=== PATIENT | female | born 1955 | race Caucasian/White ===

== ENCOUNTER 2017-07-15 00:16 | Emergency (ER) | payer BC ==
[~2017-07-15] VITALS: Ht 165.1 cm; Wt 64.0 kg
[~2017-07-15 00:16] MED LIST: AMLODIPINE10 MG PO; ASPIRIN 8181 MG PO; ASPIRIN325 MG PO; ATORVASTATIN CA20 MG PO; CIPROFLOXACN500 MG PO; COMBIVENT IN; COZAAR100 MG PO; COZAAR50 MG PO; DIAZEPAM10 MG PO; DURAGESIC25 MCG/PAT TD; EC ASPIRIN325 MG PO; EPIPEN0.3 MG IJ; FERR SULFATE325 MG PO; FLONASE NASAL50 MCG; FOLIC ACID1 MG PO; FUROSEMIDE40 MG PO; FUROSEMIDE80 MG PO; HUMALOG100 MG/ML; HUMIR1 SC; HYDRALAZINE10 MG PO; HYDRALAZINE25 MG PO; HYDROCODONE/ACE1 TAB PO; HYDROXYCHLOR200 MG PO; IPRATROPIU0.5 MG/3 M NEB; K-DUR/KLOR-CON20 MEQ PO; K-TAB20 MEQ PO; KLONOPIN1 MG PO; LABETALOL200 MG PO; LANTUS SOLOSTAR SC; LANTUS100 MG/ML SC; LASIX 20 MG20 MG/TAB PO; LEVAQUIN750 MG PO; Levaquin PO; METOPROL TAR25 M1 PO; METOPROL TAR25 MG PO; METOPROLOL TART50 MG PO; NEXIUM20 MG PO; NEXIUM40 M1 PO; NICOTINE T21 MG/PATC TD; NITRO-BID2.5 M1 PO; NITRO-TIME2.5 MG SL; NITROGLYCER0.4 MG SL; NORCO1 TAB PO; NOVOLOG FLEXPEN SC; NOVOLOG100 IU/1 M SC; PAROXETINE20 MG PO; POT CL MICRO20 MEQ PO; PREDNISONE10 MG PO; PRILOSEC40 MG PO; PROCHLORPERAZIN10 MG PO; QUESTRAN4 G1 PO; SIMVASTATIN40 MG PO; SYMBICORT 80-4.5MCG; SYMBICORT1 AE1; TEMAZEPAM15 MG PO; VALIUM5 MG PO; VERAPAMIL180 M2 PO; VERAPAMIL180 M3 PO; VITA D-1000 PO; VIVELLE-DOT0.05 MG TD; XANAX0.25 MG PO; ZEGERID1 CAP PO
[2017-07-15 01:11] LABS: HEMATOCRIT 27.4 % (37.0-47.0); HEMOGLOBIN 9.3 g/dl (12.0-16.0); IMMATURE GRANULOCYTES 0.4 % (0.0-1.0); MEAN CELL VOLUME 96.1 fL CALC (80.0-100.0); MEAN CORPUSCULAR HGB 32.6 pG CALC (26.0-32.0); MEAN CORPUSCULAR HGB CONC 33.9 g/L CALC (32.0-36.0); PLATELET COUNT 178 thou/uL (130-400); RED BLOOD COUNT 2.85 mill/uL (4.20-5.60)
[2017-07-15 01:23] LABS: BILIRUBIN, TOTAL 0.4 mg/dL (0.0-1.4); CALCIUM 8.4 mg/dL (8.4-10.2); POTASSIUM 4.6 mmol/l (3.5-5.1); TOTAL PROTEIN 5.6 g/dL (6.3-8.2)
[2017-07-15 01:26] LABS: ACT PARTIAL THROMBO TIME 32.2 SECONDS (20.0-32.5); INTERNATIONAL NORMALIZED RATIO 0.9 RATIO (0.7-1.3); PROTHROMBIN TIME 10.4 SECONDS (9.0-12.5)
[2017-07-15 01:59] LABS: CREATININE 8.4 mg/dL (0.5-1.0)
[2017-07-15 02:05] LABS: BAND 13 % (0-8); MANUAL DIFFERENTIAL YES; PLATELET ESTIMATE NORMAL
[2017-07-15 02:08] LABS: INFLUENZA A POSITIVE (NONE DETECT)
[2017-07-15 02:09] LABS: INFLUENZA B NONE DETECTED (NONE DETECT)
[2017-07-15 03:07] LABS: URINE BILIRUBIN - DIPSTICK NEGATIVE (NEGATIVE); URINE BLOOD DIPSTICK MODERATE (NEGATIVE); URINE COLOR YELLOW; URINE GLUCOSE - DIPSTICK NEGATIVE (NEGATIVE); URINE KETONE TRACE mg/dL (NEGATIVE); URINE NITRITE - DIPSTICK NEGATIVE (Negative); URINE PH 5.5 (4.5-8.0); URINE PROTEIN - DIPSTICK >=300 mg/dL (NEG-TRACE); URINE SPECIFIC GRAVITY 1.025; URINE UROBILINOGEN - DIPSTICK 0.2 E.U./dL (0.2)
[2017-07-15 03:08] LABS: URINE CLARITY CLOUDY; URINE LEUK ESTERASE MODERATE (NEGATIVE)
[2017-07-15 03:33] LABS: BARBITURATES NEGATIVE (NEGATIVE); COCAINE NEGATIVE (NEGATIVE); METHADONE NEGATIVE (NEGATIVE); TETRAHYDROCANNABIONOL NEGATIVE (NEGATIVE); TRICYLIC ANTIDEPRESSANTS NEGATIVE (NEGATIVE)
[2017-07-15 03:34] LABS: OXCYCODONE NEGATIVE (NEGATIVE)
[2017-07-15 03:46] LABS: URINE BACTERIA MANY hpf; URINE RBC 0-2 RBC/hpf (0-5); URINE WBC TNTC WBC/hpf (0-5)
[2017-07-15 03:52] VITALS: BP 108/53
== END 2017-07-15 03:52 | disposition short-term general hospital (02) | DRG 193 ==
LOC: ED 00:16
PROVIDERS: Emergency Medicine
PROC: 0T9B70Z Drainage of Bladder with Drainage Device, Via Natural or Artificial Opening (ICD-10-PCS; principal; 2017-07-15)
DX: J10.1 Influenza due to other identified influenza virus with other respiratory manifestations (principal); N18.6 End stage renal disease; I95.9 Hypotension, unspecified; E87.2 Acidosis; I12.0 Hypertensive chronic kidney disease with stage 5 chronic kidney disease or end stage renal disease; J44.1 Chronic obstructive pulmonary disease with (acute) exacerbation; F17.200 Nicotine dependence, unspecified, uncomplicated; R06.02 Shortness of breath; J02.0 Streptococcal pharyngitis; Z99.2 Dependence on renal dialysis; R05 Cough; R94.31 Abnormal electrocardiogram [ECG] [EKG]; B96.20 Unspecified Escherichia coli [E. coli] as the cause of diseases classified elsewhere